=== PATIENT | female | born 2000 | race Caucasian/White ===

== ENCOUNTER 2020-03-11 07:07 | Outpatient (CLI) | payer OTHER, SELFPAY ==
--- NOTE | 2020-03-11 07:23 | US_ITS ---
WS: [id number] ULTRASOUND BREAST LEFT TECHNIQUE: Ultrasound left breast focused area of concern. CLINICAL INFORMATION: LEFT BREAST LUMP COMPARISON: None. FINDINGS: Ultrasound left breast at the 10 to 11:00 position. Normal underlying breast tissue. No cystic or dahiana id lesions. No lesions to target for biopsy. Findings are benign. US/US breast LT limited* [id number] IMPRESSION: BI-RADS 2 benign RECOMMEND ANNUAL SCREENING MAMMOGRAPHY AGE 40
== END 2020-03-11 07:08 | disposition home or self-care (01) ==
LOC: RAD 07:12
PROVIDERS: PCP Family Medicine; Visit Provider Nurse Practitioner Family
DX: N63.20 Unspecified lump in the left breast, unspecified quadrant (principal)
CPT/HCPCS: 76642

== ENCOUNTER → 2021-12-01 13:54 | Outpatient (BNVA) | payer OTHER, SELFPAY | PROVIDERS: PCP Family Medicine; Referring Provider Family Medicine; Visit Provider Podiatrist Foot & Ankle Surgery | DX: M79.672 Pain in left foot (principal); M79.671 Pain in right foot | CPT/HCPCS: 73630 ==

== ENCOUNTER 2022-04-02 07:40 | Day surgery (SDC) | payer OTHER, SELFPAY ==
[2022-04-01 08:59] VITALS: BMI 28.3
--- NOTE | 2022-04-02 | XR_ITS ---
WS: [id number] XR foot LT 2V [id number] REASON FOR EXAM: PICS FROM OR FINDINGS: Osteotomy with small intramedullary fixation device at the fifth MP joint. Appropriate alignment of bone and surgical appliance. XR/XR foot LT 2V 41227 IMPRESSION: Postoperative left foot as above.
--- NOTE | 2022-04-02 | SCC_ITS ---
Procedure done: Left tailor bunionectomy. CPT 46222 6 seconds of fluoroscopic guidance, for a cumulative dose of 0.086 mGy, was provided to Dr. Nam by the radiology department. C-arm images of the left foot were saved for the patient's permanent record. MTDD
[2022-04-02 08:05] LABS: OR HCG Qualitative Urine Negative (Negative)
[2022-04-02 08:08] VITALS: BP 126/68; PULSE 80; RESP 18; TEMP 36.7; O2SAT 99
[2022-04-02] MEDS: gabapentin 300 mg Capsule PO (08:24)
[2022-04-02] MEDS: sodium chloride 0.9% 1,000 ML 30 ML IV (08:24)
[2022-04-02] MEDS: CELEcoxib 200 mg Capsule 400 MG PO (08:24)
[2022-04-02] MEDS: scopolamine 1.5 Patch 1 PATCH TRANSDERMA (08:25)
--- NOTE | 2022-04-02 08:51 | ANES.PREANE2 ---
Pre-Anesthetic Assessment Height/Weight: Height 1.63 m Weight 74.843 kg Temp Pulse Resp BP Pulse Ox O2 Del Method 98.0 F 80 18 126/68 99 04/02/22 08:08 04/02/22 08:08 04/02/22 08:08 04/02/22 08:08 04/02/22 08:08 04/02/22 08:08 Preop Diagnosis: Left tailor's bunion Operation Date: 04/02/22 09:10 Proposed Procedures p Bunionectomy Tailors 50628/M21.622(Left) - Wesly Nam DPM Familial anesthetic complications: none Was Beta Sumaya taken within 24 hours: N/A Was Clonidine taken within 24 hours: N/A Last intake: Intake Last Liquid Date 04/01/22 Last Liquid Time 20:00 Last Solid Date 04/01/22 Last Solid Time 20:00 Social No alcohol and No tobacco Exam alert, oriented x 3, clear to auscultation bilaterally and regular rate & rhythm Airway Mallampati: Class I Dentition: chipped Anesthetic Plan ASA status: 1 Anesthesia: MAC Risk of > 500 ml blood loss (7ml/kg in children): No Medications/Allergies Home Medications Medication Instructions Recorded Confirmed Last Taken Type sertraline 25 mg tablet (Zoloft) 25 mg PO DAILY 04/01/22 04/02/22 04/01/22 History Allergies Allergy/AdvReac Type Severity Reaction Status Date / Time cephalexin [From Keflex] Allergy Rash Verified 04/01/22 08:57 Current Medications Generic Name Dose Route Start Last Admin Trade Name Freq PRN Reason Stop Dose Admin Sodium Chloride 1,000 mls @ 30 mls/hr 04/02/22 08:00 04/02/22 08:24 Sodium Chloride 0.9% IV 04/03/22 07:59 30 mls/hr .Q24H CARMELO Administration PFSH Anesthesia Medical History (Updated 12/05/21 @ 21:37 by Wesly Nam DPM) Bilateral bunions Social History (Updated 01/19/21 @ 15:17 by Licha Burnett LPN) History of recent travel: Yes Female Reproductive History Date of last menstrual period: 03/08/22 Data Anesthesia Cardiac Studies: No Data to Display
--- NOTE | 2022-04-02 09:00 | W.PM.OPSUD ---
Surgery/Procedure H&P Update DATE OF PROCEDURE: April 02, 2022 DATE H&P PERFORMED: 12/01/21 CHANGES TO PREVIOUS DOCUMENTATION: none PREOP DIAGNOSIS: Left tailor's bunion PLANNED PROCEDURE: Operation Date: 04/02/22 09:10 Proposed Procedures p Bunionectomy Arti 79182/M21.622(Left) - Wesly Nam DPM
--- NOTE | 2022-04-02 09:00 | PM.OPSURHP ---
Providers/Chief Complaint Primary Care Provider: Casandra Spears MD Chief Complaint: tailor's bunion of left foot M21.622 History of Present Illness Karlene Rico is a 21 year old female presents with increased pain to tailor's bunion left greater than right. She has failed conservative measures consisting of wider accommodative shoes, stretching, toe spacers and padding as well as anti-inflammatories. 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 She is accompanied by her father and mother. Patient denies any subjective nausea, vomiting, fever, chills, shortness of breath or chest pain. Review of Systems General: Reports: 10 or more systems reviewed and unremarkable except in HPI and below Const: Denies: fever(s) or chills Eyes: Denies: change in vision Card: Denies: chest pain or palpitations Resp: Denies: dyspnea or productive cough GI: Denies: abdominal pain, nausea or vomiting : Denies: flank pain Musc: Reports: extremity pain, joint pain, joint stiffness, limited range of motion and deformity Skin/Breast: Reports: skin tenderness; Denies: rash Neuro: Reports: difficulty walking; Denies: numbness in extremities, sensory changes or frequent falls Psych: Denies: suicidal ideation Eliel/Lymph: Denies: easy bruising Medications/Allergies Home Medications Medication Instructions Recorded Confirmed Last Taken Type sertraline 25 mg tablet (Zoloft) 25 mg PO DAILY 04/01/22 04/01/22 Unknown History Allergies Allergy/AdvReac Type Severity Reaction Status Date / Time cephalexin [From Keflex] Allergy Rash Verified 04/01/22 08:57 PFSH PFSH: Medical History (Updated 04/02/22 @ 09:02 by Wesly Nam DPM) Bilateral bunions Social History (Updated 01/19/21 @ 15:17 by Licha Burnett LPN) History of recent travel: Yes Female Reproductive History: Date of last menstrual period: 03/08/22 Vital Signs Vitals Signs: Last Vital Signs Temp 98.0 F 04/02/22 08:08 Pulse 80 04/02/22 08:08 Resp 18 04/02/22 08:08 BP 126/68 04/02/22 08:08 Pulse Ox 99 04/02/22 08:08 O2 Del Method 04/02/22 08:08 Weight: Weight last 48 hrs Weight 165 lb Physical Exam Narrative: EXAM NARRATIVE: GENERAL: Patient is alert and oriented ?3 and in no acute distress.? The following is a focused bilateral lower extremity exam. VASCULAR: Dorsalis pedis and posterior tibial arteries palpable +2.? Capillary refill time less than 3 seconds to the distal hallux bilaterally. Calf is supple and nontender proximally and distally.? No pedal edema appreciated.? Pedal hair growth present. NEUROLOGICAL: Epicritic and protopathic sensations grossly intact to the lower extremities.? +2 Achilles tendon reflex noted bilaterally.? Negative Tinel sign upon percussion of lower extremity nerves. DERMATOLOGICAL: Lower extremity skin is well-hydrated, normal texture and turgor.? There are no open sores or lesions noted to the lower extremities.? No erythema or ecchymosis present to the bilateral legs and feet. MUSCULOSKELETAL: Pain to palpation at tailor's bunion left greater than right. No palpable mass along the course of the plantar fascia appreciated.? No pain to palpation along the course of the bilateral Achilles tendon.? No pain to palpation along the course posterior tibial tendon or peroneal tendons.? No pain with [id number] compression of calcaneus, bilaterally.? Muscle strength is 5/5 in all 3 cardinal planes pain-free without guarding to the foot and ankle, bilaterally.? Tailor's bunion deformity left and right foot with tenderness at the lateral aspect of the fifth metatarsophalangeal joint bilaterally.? Mild pes planus with collapse of the medial longitudinal arch which is recreated with elevation of the hallux.? Mild bunion deformity that is nonpainful with mild hallux valgus bilaterally.? Hammertoe to the fifth digit bilaterally.? Hammertoes triplane. CARDIOVASCULAR: S1, S2, normal rate, normal rhythm. Dorsalis pedis and posterior tibial arteries palpable. LUNGS: Clear to auscltation, no use of acessory muscles, no crackles or wheezes. A&P Assessment and plan (1) Tailor's bunion of both feet: Status: Acute (2) Pes planus of both feet: Status: Acute (3) Hammertoe, bilateral: Status: Acute (4) Bilateral foot pain: Status: Acute Plan Patient requesting surgical correction of her tailor's bunion. She has a bunion bilaterally, tailor's bunion bilaterally. Hammertoe of the fifth bilaterally and pes planus. Areas that cause pain are the tailor's bunion left greater than right other deformities are nonpainful. Has failed conservative measures consisting of wide accommodative shoes, prefabricated orthotics, daily stretching, anti-inflammatories, activity modifications and padding/spacers. Would like to discuss surgical approach and recovery for jeff's bunionectomy of the left foot. Her plans are to have the left foot done first followed by the right once she is recovered. X-ray shows increased first and fourth intermetatarsal angle, hammertoe with transverse plane dominance of the fifth bilaterally. There is increased fourth intermetatarsal angle of the left foot with curvature laterally of the left fifth metatarsal. I reviewed at length with the patient, the risks, potential complications, benefits, alternatives, expectations, and typical outcomes associated with the surgery. The risks and potential complications were explained in detail, including but not limited to infection, wound dehiscence or soft tissue complications, bleeding and hematoma, chronic edema, neuritis or nerve damage producing numbness or chronic pain, CRPS, failure to relieve pain or worsening pain, thick / painful / unsightly scar, limited motion / stiffness, malposition, delayed union, malunion, or nonunion, fracture, reaction to implants, anesthetic complications, venous thromboembolism, and deformity recurrence. I discussed the notion of no regrets with the patient as it pertains to complications and outcomes. The patient seemed to understand the nature of the proposed care and required convalescence. They asked appropriate questions, answered to their satisfaction. They are aware no guarantees can be made as to a satisfactory outcome and they understand there may be other possible unforeseen complications or outcomes not listed here that will be treated accordingly if they arise. There were no written or implied guarantees given to the patient. They gave informed consent to proceed. Will proceed with surgery under local MAC, outpatient, 04/02/2022 left jeff's bunionectomy. Coding Level of Care Code Acute Supervisor [employer] for [facility] Fwd Diagnoses Tailor's bunion of both feet M21.621; M21.622 Pes planus of both feet M21.41; M21.42 Hammertoe, bilateral M20.41; M20.42 Bilateral foot pain M79.671; M79.672
[2022-04-02] MEDS: clindamycin 600 MG/50 ML PREMIX 100 MG IV (09:03)
[2022-04-02 09:43] VITALS: BP 90/50; PULSE 99; RESP 15; TEMP 36.2; O2SAT 99
[2022-04-02 09:45] VITALS: BP 96/55; PULSE 60; RESP 16; O2SAT 100
[2022-04-02 09:54] VITALS: BP 98/60; PULSE 60; RESP 18; TEMP 36.8; O2SAT 100
[2022-04-02 10:04] VITALS: BP 95/64; PULSE 56; RESP 16; TEMP 36.8; O2SAT 99
--- NOTE | 2022-04-02 10:09 | SUR.PHASEI ---
1000 PT AWAKE ALERT ON RA TO OPS , PT TALKATIVE DRESSING TO LT FOOT D/I BOOT IN PLACE, DISTAL TOES PINK WITH GOOD CAP REFILL, IV TO LT FA PATENT NS AT KVO RATE , ID BRACELET TO RT WRIST , PT ID'D WITH 2 IDENTIFERS. HANDOFF AT BEDSIDE TO GURJIT WATSON.
[2022-04-02 10:15] VITALS: BP 105/68; PULSE 60; RESP 16; O2SAT 100
--- NOTE | 2022-04-02 10:48 | PM.OP ---
Operative Report Date of procedure: April 02, 2022 Pre-op diagnosis: Preop Diagnosis Left tailor's bunion Post-op diagnosis: Same Procedure done: Left tailor bunionectomy. CPT 77441 Implants: [employer]/[place], 3-0 Vicryl, 4-0 nylon Surgeon: Wesly Nam D.P.M. Handle Bar Assembler: Teresa Estimated blood loss: Less than 5 See intraoperative documentation IV fluids: None Urine output: None Complications: None Brief History: Patient requesting surgical correction of her tailor's bunion.? She has a bunion bilaterally, tailor's bunion bilaterally.? Hammertoe of the fifth bilaterally and pes planus.? Areas that cause pain are the tailor's bunion left greater than right other deformities are nonpainful.? Has failed conservative measures consisting of wide accommodative shoes, prefabricated orthotics, daily stretching, anti-inflammatories, activity modifications and padding/spacers.? Would like to discuss surgical approach and recovery for tailor's bunionectomy of the left foot.? Her plans are to have the left foot done first followed by the right once she is recovered.? X-ray shows increased first and fourth intermetatarsal angle, hammertoe with transverse plane dominance of the fifth bilaterally.? There is increased fourth intermetatarsal angle of the left foot with curvature laterally of the left fifth metatarsal. I reviewed at length with the patient, the risks, potential complications, benefits, alternatives, expectations, and typical outcomes associated with the surgery. The risks and potential complications were explained in detail, including but not limited to infection, wound dehiscence or soft tissue complications, bleeding and hematoma, chronic edema, neuritis or nerve damage producing numbness or chronic pain, CRPS, failure to relieve pain or worsening pain, thick / painful / unsightly scar, limited motion / stiffness, malposition, delayed union, malunion, or nonunion, fracture, reaction to implants, anesthetic complications, venous thromboembolism, and deformity recurrence.? I discussed the notion of no regrets with the patient as it pertains to complications and outcomes. The patient seemed to understand the nature of the proposed care and required convalescence. They asked appropriate questions, answered to their satisfaction. They are aware no guarantees can be made as to a satisfactory outcome and they understand there may be other possible unforeseen complications or outcomes not listed here that will be treated accordingly if they arise. There were no written or implied guarantees given to the patient. They gave informed consent to proceed. Procedure: Under mild sedation the patient was brought to the operating room and remained on the gurney in supine position. A timeout was performed. Anesthesia was then administered by the anesthesia service. Local anesthesia injected by myself consisting of 20 cc of 0.5% Marcaine plain with 10 cc of Exparel in a grid like fashion and a reverse Brewer block technique to the left foot. Well-padded pneumatic tourniquet applied to the left ankle. The left lower extremity was then scrubbed, prepped and draped utilizing normal aseptic technique. Left foot was exanguinated with an Esmarch bandage and a tourniquet inflated to 250 mmHg. Attention was directed to the dorsal lateral aspect of the left fifth metatarsal phalangeal joint where a curvilinear incision was made with a #15 blade through skin with dissection carried down through subcutaneous tissue to the level of joint capsule and periosteum utilizing a combination of blunt and sharp technique. Care was taken to retract and preserve neurovascular and tendinous structures. All bleeders were ligated and cauterized as necessary. A periosteal and capsular incision was made at the lateral aspect of the left fifth metatarsal phalangeal joint and the head of the fifth metatarsal head laterally was freed from its soft tissue and capsular attachments. Bony prominence was transected utilizing a sagittal saw and this was passed from the operative field. A transverse osteotomy at the metaphyseal was performed from lateral to medial utilizing a sagittal saw followed by translation of the head of the fifth metatarsal medially into a more anatomically corrected position followed by fixation utilizing standard technique and manufacture recommendation of Ana, small and medium broach were performed on intramedullary canal, appropriate fitting and tightness with the medium sized broach was appreciated, a intramedullary titanium implant was then inserted from distal to proximal and temporary fixation of the head of the fifth metatarsal was achieved with K wire followed by fixation with a single locking screw with excellent bony apposition and compression noted. Utilizing AP, oblique and lateral views fixation was noted to be appropriate and not violating the fifth metatarsal phalangeal joint, with centralized within the head of the fifth metatarsal with excellent bony apposition and compression noted at the osteotomy site. Temporary fixation was removed. All bony edges at the osteotomy site were smoothed with a hand rasp. The incision was flushed with copious amounts of sterile skin solution followed by closure with capsule and subcutaneous tissue closed with 4-0 Vicryl care taken to avoid neurovascular bundle. Skin closed with 4-0 nylon. The incision was dressed with Adaptic, sterile 4 x 4, Kerlix, Viraj wrap followed by application of a cam boot to the left lower extremity. Tourniquet was deflated and a prompt hyperemic response was noted to the distal digits of the left foot. Patient tolerated the procedure well and was transferred to the PACU with vital signs stable and vascular status intact. Following a period of postoperative monitoring she will be discharged home may be weightbearing as tolerated below threshold of pain. She is instructed to elevate her left foot while resting. She was prescribed hydrocodone to be taken judiciously as needed for pain. Was provided my cell phone number to contact me with any postoperative questions or concerns. Has scheduled follow-up next week in podiatry clinic for continued postoperative care.
--- NOTE | 2022-04-02 14:51 | ANE.PACU2 ---
Inpatient post-anesthesia follow up: Airway intact: Yes Vital signs: Temperature 98.2 F Pulse Rate 60 Respiratory Rate 16 Blood Pressure 105/68 Pulse Oximetry 100 Oxygen Delivery Me thod Room Air Oxygen Flow Rate 8 Fraction of Inspir ed Oxygen Hydration adequate: Yes Nausea and vomiting: No Pain level: 2 Mental status: Baseline
== END 2022-04-02 10:35 | disposition home or self-care (01) ==
PROVIDERS: Anesthesiology; PCP Family Medicine; Visit Provider Podiatrist Foot & Ankle Surgery
PROC: 0QBP0ZZ Excision of Left Metatarsal, Open Approach (ICD-10-PCS; CPT 28110; principal; 2022-04-02 09:00)
DX: M21.622 Bunionette of left foot (principal); M21.621 Bunionette of right foot; M21.42 Flat foot [pes planus] (acquired), left foot; M21.41 Flat foot [pes planus] (acquired), right foot; M20.42 Other hammer toe(s) (acquired), left foot; M20.41 Other hammer toe(s) (acquired), right foot; Z88.1 Allergy status to other antibiotic agents
CPT/HCPCS: 28308; 73620; 76000; 81025; 84703; C1713; C9290; J2704; J3010; J3490; J7030

== ENCOUNTER → 2022-04-22 13:59 | Outpatient (BNVA) | payer OTHER, SELFPAY | PROVIDERS: PCP Family Medicine; Visit Provider Podiatrist Foot & Ankle Surgery | DX: Z98.890 Other specified postprocedural states (principal) | CPT/HCPCS: 73630 ==

== ENCOUNTER → 2022-05-13 13:46 | Outpatient (BNVA) | payer OTHER, SELFPAY | PROVIDERS: PCP Family Medicine; Visit Provider Podiatrist Foot & Ankle Surgery | DX: Z98.890 Other specified postprocedural states (principal); M21.621 Bunionette of right foot; M21.622 Bunionette of left foot; M20.41 Other hammer toe(s) (acquired), right foot; M20.42 Other hammer toe(s) (acquired), left foot | CPT/HCPCS: 73630 ==

== ENCOUNTER 2022-05-28 05:54 | Day surgery (SDC) | payer OTHER, SELFPAY ==
[2022-05-27 11:19] VITALS: BMI 27.4
--- NOTE | 2022-05-28 | SCC_ITS ---
Procedure done: Right tailor's bunionectomy 67650 1 second of fluoroscopic guidance, for a cumulative dose of 0.01 mGy, was provided to Dr. Nam by the radiology department. C-arm images of the right foot were saved for the patient's permanent record. MTDD
--- NOTE | 2022-05-28 | XR_ITS ---
WS: [id number] Right foot, C-arm fluoroscopy, 05/28/2022 Clinical Data: BUNIONECTOMY Comparison: None. Findings: There is a bunionectomy of the distal right fifth metatarsal with a lateral plate and screw in the me tatarsal head. XR/XR foot RT 2V 24143 Impression: Right fifth metatarsal bunionectomy.
[2022-05-28 06:15] VITALS: BP 106/65; PULSE 64; RESP 18; TEMP 36.7; O2SAT 95
--- NOTE | 2022-05-28 06:15 | W.PM.OPSUD ---
Surgery/Procedure H&P Update DATE OF PROCEDURE: May 28, 2022 DATE H&P PERFORMED: 05/13/22 CHANGES TO PREVIOUS DOCUMENTATION: none PREOP DIAGNOSIS: Right tailor's bunion PRIMARY INDICATION FOR PROCEDURE: Painful tailor's bunion, right foot, failed conservative treatment measures. PLANNED PROCEDURE: Operation Date: 05/28/22 07:00 Proposed Procedures p Right tailor's bunionectomy 54317,M21.621(Right) - Wesly Nam DPM
--- NOTE | 2022-05-28 06:16 | P.OP_ITS ---
Operative Report Procedure: Date of procedure: April 272021 Pre-op diagnosis: Preop Diagnosis ? right jeff's benjaminion? Post-op diagnosis: Same Procedure done: Right tailor bunionectomy. CPT 74974 Implants: [employer] medical/[place], 3-0 Vicryl, 4-0 nylon Surgeon: Wesly Nam D.P.M. Hoop Puncher: See intraoperative documentation Estimated blood loss: Less than 5 Tourniquet: See intraoperative documentation IV fluids: None Urine output: None Complications: None Brief History: Patient requesting surgical intervention to her right jeff's benjaminion. Has had this left fixed with success. She has failed conservative management consisting of wide accommodative shoes, padding, spacing, stretching, anti-inflammatories both orally and topically. 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 Would like to proceed with right tailor's bunionectomy. I reviewed at length with the patient, the risks, potential complications, benefits, alternatives, expectations, and typical outcomes associated with the surgery. The risks and potential complications were explained in detail, including but not limited to infection, wound dehiscence or soft tissue complications, bleeding and hematoma, chronic edema, neuritis or nerve damage producing numbness or chronic pain, CRPS, failure to relieve pain or worsening pain, thick / painful / unsightly scar, limited motion / stiffness, malposition, delayed union, malunion, or nonunion, fracture, reaction to implants, anesthetic complications, venous thromboembolism, and deformity recurrence.? I discussed the notion of no regrets with the patient as it pertains to complications and outcomes. The patient seemed to understand the nature of the proposed care and required convalescence. They asked appropriate questions, answered to their satisfaction. They are aware no guarantees can be made as to a satisfactory outcome and they understand there may be other possible unforeseen complications or outcomes not listed here that will be treated accordingly if they arise. There were no written or implied guarantees given to the patient. They gave informed consent to proceed. Procedure: Under mild sedation the patient was brought to the operating room and remained on the gurney in supine position.? A timeout was performed.? Anesthesia was then administered by the anesthesia service.? Local anesthesia injected by myself consisting of 20 cc of 0.5% Marcaine plain with 10 cc of Exparel in a grid like fashion and a reverse Brewer block technique to the right foot.? Well-padded pneumatic tourniquet applied to the right ankle.? The right lower extremity was then scrubbed, prepped and draped utilizing normal aseptic technique.? Right foot was exanguinated with an Esmarch bandage and a tourniquet inflated to 250 mmHg. Attention was directed to the dorsal lateral aspect of the right fifth metatarsal phalangeal joint where a curvilinear incision was made with a #15 blade through skin with dissection carried down through subcutaneous tissue to the level of joint capsule and periosteum utilizing a combination of blunt and sharp technique.? Care was taken to retract and preserve neurovascular and tendinous structures.? All bleeders were ligated and cauterized as necessary.? A periosteal and capsular incision was made at the lateral aspect of the right fifth metatarsal phalangeal joint and the head of the fifth metatarsal head laterally was freed from its soft tissue and capsular attachments.? Bony prominence was transected utilizing a sagittal saw and this was passed from the operative field.? A transverse osteotomy at the metaphyseal was performed from lateral to medial utilizing a sagittal saw followed by translation of the head of the fifth metatarsal medially into a more anatomically corrected position followed by fixation utilizing standard technique and manufacture recommendation of Ana, small and medium broach were performed on intramedullary canal, appropriate fitting and tightness with the medium sized broach was appreciated, a intramedullary titanium implant was then inserted from distal to proximal and temporary fixation of the head of the fifth metatarsal was achieved with K wire followed by fixation with a single locking screw with excellent bony apposition and compression noted.? Utilizing AP, oblique and lateral views fixation was noted to be appropriate and not violating the fifth metatarsal phalangeal joint, with centralized within the head of the fifth metatarsal with excellent bony apposition and compression noted at the osteotomy site.? Temporary fixation was removed.? All bony edges at the osteotomy site were smoothed with a hand rasp.? The incision was flushed with copious amounts of sterile skin solution followed by closure with capsule and subcutaneous tissue closed with 4-0 Vicryl care taken to avoid neurovascular bundle.? Skin closed with 4-0 nylon.? The incision was dressed with Adaptic, sterile 4 x 4, Kerlix, Viraj wrap followed by application of a cam boot to the right lower extremity.? Tourniquet was deflated and a prompt hyperemic response was noted to the distal digits of the right foot.? Patient tolerated the procedure well and was transferred to the PACU with vital signs stable and vascular status intact.? Following a period of postoperative monitoring she will be discharged home may be weightbearing as tolerated below threshold of pain.? She is instructed to elevate her right foot while resting.? She was prescribed hydrocodone to be taken judiciously as needed for pain.? Was provided my cell phone number to contact me with any postoperative questions or concerns.? Has scheduled follow-up next week in podiatry clinic for continued postoperative care.
[2022-05-28] MEDS: sodium chloride 0.9% 1,000 ML 30 ML IV (06:21)
[2022-05-28] MEDS: scopolamine 1.5 Patch 1 PATCH TRANSDERMA (06:23)
--- NOTE | 2022-05-28 06:47 | ANES.PREANE2 ---
Pre-Anesthetic Assessment Height/Weight: Height 1.63 m Weight 72.575 kg Temp Pulse Resp BP Pulse Ox O2 Del Method 98.1 F 64 18 106/65 95 05/28/22 06:15 05/28/22 06:15 05/28/22 06:15 05/28/22 06:15 05/28/22 06:15 05/28/22 06:18 Preop Diagnosis: Right tailor's bunion Operation Date: 05/28/22 07:00 Proposed Procedures p Right tailor's bunionectomy [id number],M21.621(Right) - Wesly Nam DPM Familial anesthetic complications: nausea Was Beta Sumaya taken within 24 hours: N/A Was Clonidine taken within 24 hours: N/A Last intake: Intake Last Liquid Date 05/27/22 Last Liquid Time 18:00 Last Solid Date 05/27/22 Last Solid Time 20:00 Social No alcohol and No tobacco Exam alert, oriented x 3, clear to auscultation bilaterally and regular rate & rhythm Airway Submandibular: within normal limits Cervical ROM: within normal limits Mallampati: Class II Dentition: full Pulmonary None reported CV/HEM None reported None reported Hepatic None reported GI Gastroesophageal Reflux Disease (controlled) Metabolic None reported Musc/skel None reported Neuropsych Anxiety Anesthetic Plan ASA status: 2 Anesthesia: MAC Medications/Allergies Home Medications Medication Instructions Recorded Confirmed Last Taken Type sertraline 25 mg tablet (Zoloft) 25 mg PO DAILY 04/01/22 05/28/22 05/27/22 History hydrocodone 10 mg-acetaminophen 1 tab PO Q6H PRN pain 7 days #20 05/28/22 Unknown Rx 325 mg tablet tabs Allergies Allergy/AdvReac Type Severity Reaction Status Date / Time cephalexin [From Keflex] Allergy Rash Verified 05/13/22 13:47 Current Medications Generic Name Dose Route Start Last Admin Trade Name Freq PRN Reason Stop Dose Admin Sodium Chloride 1,000 mls @ 30 mls/hr 05/28/22 06:00 05/28/22 06:21 Sodium Chloride 0.9% IV 05/29/22 05:59 30 mls/hr .Q24H CARMELO Administration PFSH Anesthesia Medical History Bilateral bunions Social History History of recent travel: Yes Female Reproductive History Date of last menstrual period: 05/05/22 Data Anesthesia Cardiac Studies: No Data to Display
[2022-05-28 06:52] LABS: OR HCG Qualitative Urine Negative (Negative)
[2022-05-28] MEDS: clindamycin 600 MG/50 ML PREMIX 100 MG IV (06:59)
[2022-05-28 07:45] VITALS: BP 112/51; PULSE 69; RESP 18; TEMP 36.7; O2SAT 99
[2022-05-28 07:50] VITALS: BP 108/54; PULSE 67; RESP 18; O2SAT 99
[2022-05-28 07:55] VITALS: BP 116/63; PULSE 68; RESP 18; TEMP 36.8; O2SAT 100
[2022-05-28 08:00] VITALS: BP 108/61; PULSE 70; RESP 16; O2SAT 99
[2022-05-28 08:12] VITALS: BP 92/69; PULSE 73; RESP 18; TEMP 36.3; O2SAT 100
--- NOTE | 2022-05-28 15:08 | ANE.PACU2 ---
Inpatient post-anesthesia follow up: Airway intact: Yes Vital signs: Temperature 97.3 F Pulse Rate 73 Respiratory Rate 18 Blood Pressure 92/69 Pulse Oximetry 100 Oxygen Delivery Me thod Room Air Oxygen Flow Rate Fraction of Inspir ed Oxygen Hydration adequate: Yes Nausea and vomiting: No Pain level: 2 Mental status: Baseline
== END 2022-05-28 08:30 | disposition home or self-care (01) ==
PROVIDERS: Anesthesiology; PCP Family Medicine; Visit Provider Podiatrist Foot & Ankle Surgery
PROC: 0QBP0ZZ Excision of Left Metatarsal, Open Approach (ICD-10-PCS; CPT 28110; principal; 2022-05-28 07:00)
DX: M21.621 Bunionette of right foot (principal); K21.9 Gastro-esophageal reflux disease without esophagitis
CPT/HCPCS: 28308; 73620; 76000; 81025; 84703; C1713; C9290; J1100; J2250; J2405; J2704; J3010; J3490; J7030

== ENCOUNTER → 2022-06-10 14:56 | Outpatient (BNVA) | payer OTHER, SELFPAY | PROVIDERS: PCP Family Medicine; Visit Provider Podiatrist Foot & Ankle Surgery | DX: M21.622 Bunionette of left foot (principal); M20.41 Other hammer toe(s) (acquired), right foot; M20.42 Other hammer toe(s) (acquired), left foot; Z98.890 Other specified postprocedural states | CPT/HCPCS: 73630 ==

== ENCOUNTER → 2022-07-08 13:23 | Outpatient (BNVA) | payer OTHER, SELFPAY | PROVIDERS: PCP Family Medicine; Visit Provider Podiatrist Foot & Ankle Surgery | DX: Z98.890 Other specified postprocedural states (principal); M21.621 Bunionette of right foot; M21.622 Bunionette of left foot; M20.41 Other hammer toe(s) (acquired), right foot; M20.42 Other hammer toe(s) (acquired), left foot | CPT/HCPCS: 73630 ==

== ENCOUNTER → 2022-08-26 14:43 | Outpatient (BNVA) | payer OTHER, SELFPAY | PROVIDERS: PCP Family Medicine; Visit Provider Podiatrist Foot & Ankle Surgery | DX: Z98.890 Other specified postprocedural states (principal); M21.621 Bunionette of right foot; M21.622 Bunionette of left foot; M20.41 Other hammer toe(s) (acquired), right foot; M20.42 Other hammer toe(s) (acquired), left foot | CPT/HCPCS: 73630 ==

== ENCOUNTER → 2022-11-30 12:49 | Outpatient (BNVA) | payer OTHER, SELFPAY | PROVIDERS: PCP Family Medicine; Visit Provider Podiatrist Foot & Ankle Surgery | DX: Z98.890 Other specified postprocedural states (principal); M21.621 Bunionette of right foot; M21.622 Bunionette of left foot; M20.41 Other hammer toe(s) (acquired), right foot; M20.42 Other hammer toe(s) (acquired), left foot; L84 Corns and callosities | CPT/HCPCS: 73630 ==

== ENCOUNTER → 2023-02-25 19:00 | Outpatient (BNVA) | payer OTHER, SELFPAY | PROVIDERS: PCP Family Medicine; Visit Provider Registered Nurse Neonatal Intensive Care | DX: T78.40XA Allergy, unspecified, initial encounter (principal) | CPT/HCPCS: 86003 ==

== ENCOUNTER → 2023-08-10 13:20 | Outpatient (BNVA) | payer OTHER, SELFPAY | PROVIDERS: PCP Family Medicine; Referring Provider Nurse Practitioner; Visit Provider Nurse Practitioner | DX: T14.8XXA Other injury of unspecified body region, initial encounter (principal); X58.XXXA Exposure to other specified factors, initial encounter | CPT/HCPCS: 80053; 84443; 85025 ==

== ENCOUNTER → 2024-03-04 11:55 | Outpatient (BNVA) | payer OTHER, SELFPAY | PROVIDERS: PCP Family Medicine; Visit Provider Nurse Practitioner | DX: R31.9 Hematuria, unspecified (principal) | CPT/HCPCS: 81000; 87086 ==

== ENCOUNTER → 2024-08-10 11:05 | Outpatient (BNVA) | payer OTHER, SELFPAY | PROVIDERS: PCP Family Medicine; Referring Provider Nurse Practitioner; Visit Provider Nurse Practitioner | DX: T14.8XXA Other injury of unspecified body region, initial encounter (principal); X58.XXXA Exposure to other specified factors, initial encounter; R53.83 Other fatigue; F32.A Depression, unspecified | CPT/HCPCS: 85025 ==

== ENCOUNTER → 2024-08-21 10:37 | Outpatient (BNVA) | payer OTHER, SELFPAY | PROVIDERS: PCP Family Medicine; Visit Provider Nurse Practitioner | DX: R50.9 Fever, unspecified (principal); R53.83 Other fatigue; F32.A Depression, unspecified | CPT/HCPCS: 80053; 84443; 85025; 87400 ==

== ENCOUNTER → 2024-10-09 09:48 | Outpatient (BNVA) | payer OTHER, SELFPAY | PROVIDERS: PCP Family Medicine; Visit Provider Podiatrist Foot & Ankle Surgery | DX: M79.671 Pain in right foot (principal); M79.672 Pain in left foot; M21.41 Flat foot [pes planus] (acquired), right foot; M21.42 Flat foot [pes planus] (acquired), left foot; M20.41 Other hammer toe(s) (acquired), right foot; M20.42 Other hammer toe(s) (acquired), left foot; Z98.890 Other specified postprocedural states; T84.84XA Pain due to internal orthopedic prosthetic devices, implants and grafts, initial encounter; Y79.2 Prosthetic and other implants, materials and accessory orthopedic devices associated with adverse incidents | CPT/HCPCS: 73630 ==

== ENCOUNTER → 2025-06-27 15:22 | Outpatient (BNVA) | payer OTHER, SELFPAY | PROVIDERS: PCP Family Medicine; Visit Provider Psychiatry & Neurology Psychiatry | DX: Z79.899 Other long term (current) drug therapy (principal) | CPT/HCPCS: 80053; 84443; 85025 ==